=== PATIENT | male | born 1960 | race Caucasian/White ===

== ENCOUNTER 2019-02-27 09:33 | Day surgery (SDC) | payer OTHER ==
--- NOTE | 2019-02-27 10:45 | Anesthesia Day of Surgery ---
Anesthesia Day of Surgery - Day of Surgery Patient Examined: Yes Patient H&P Reviewed: Yes Patient is NPO: Yes
--- NOTE | 2019-02-27 10:45 | Anesthesia Consultation ---
Anesthesia Consult and Med Hx Date of service: 02/27/19 - Airway Anesthetic Teeth Evaluation: Dentures ROM Head & Neck: Adequate Mental/Hyoid Distance: Adequate Mallampati Class: Class II Intubation Access Assessment: Good - Pulmonary Exam CTA: Yes - Cardiac Exam Cardiac Exam: No Murmur - Pre-Operative Health Status ASA Pre-Surgery Classification: ASA2 - Pulmonary Hx Smoking: Yes (SINCE AGE 14; QUIT 2006) - Central Nervous System Hx Psychiatric Problems: No - Other Systems Hx Alcohol Use: Yes ([place]) Hx Substance Use: No Hx Cancer: No
[2019-02-27] MEDS ORDERED: LIDOCAINE 1%/EPINEPHRINE 1:100,000 VIAL (20 ML) INFILTRATI ONE (10:59)
[2019-02-27] MEDS ORDERED: BUPIVACAINE/PF (0.5%) 5 MG/1 ML 30 ML VIAL INFILTRATI ONE ×3 (10:59→12:36)
[2019-02-27] MEDS ORDERED: LACTATED RINGERS 1,000 ML IV SCH (11:00)
[2019-02-27] MEDS ORDERED: MIDAZOLAM 2 MG/2 ML INJ IV NR (11:00)
[2019-02-27] MEDS ORDERED: HEPARIN 5,000 UNIT/1 ML VIAL SUB-Q NR (11:45)
[2019-02-27] MEDS ORDERED: fentaNYL 100 MCG/2 ML INJ IV PRN (11:55)
[2019-02-27] MEDS ORDERED: ceFAZolin/STERILE WATER 2 GM/20 ML SYRINGE IV NR (12:00)
[2019-02-27] MEDS ORDERED: PROPOFOL 200 MG/20 ML VIAL IV ONE (12:04)
[2019-02-27] MEDS ORDERED: fentaNYL 100 MCG/2 ML INJ ONE (12:15)
[2019-02-27] MEDS ORDERED: ePHEDrine SULFATE 50 MG/1 ML INJ ONE (12:30)
[2019-02-27] MEDS ORDERED: LIDOCAINE MPF (2%) 20 MG/1 ML VIAL 5 ML ONE (12:36)
[2019-02-27] MEDS ORDERED: ONDANSETRON 4 MG/2 ML INJ ONE (13:58)
--- NOTE | 2019-02-27 14:14 | Post Operative Note ---
Pre-op diagnosis: 1) Left chest lipoma 2) Left upper back lipoma Post-op diagnosis: same Procedure: Excision of left chest and left back lipomas Anesthesia: other (LMA) Surgeon: SHANTI MAHAJAN Estimated blood loss: 50-100ml Pathology: list (1) left chest lipoma 2) left back lipoma) Specimen disposition: to lab Condition: stable Disposition: PACU
[2019-02-27] MEDS ORDERED: oxyCODONE /ACETAMINOPHEN 5-325MG TAB PO PRN (15:00)
[2019-02-27 15:05] VITALS: BP 121/72
--- NOTE | 2019-02-27 16:18 | Procedure Note ---
Date of procedure: 02/27/19 Pre-op diagnosis: 1) Left chest mass, 12 cm 2) Left back mass, 8 cm Post-op diagnosis: same Procedure: Excision of left chest and left upper back mass Description of procedure: Pt was placed supine on the OR table. General anesthesia by LMA was administered. Pt was repositioned left side down. Chest, shoulder and back were prepped and draped. Skin and SQ tissue over the chest mass were infiltrated with 5 ml of 0.5% Marcaine. Skin was incised. The SQ mass was c/w a lipoma. The mass was excised with Bovie and blunt dissection down to the muscular chest wall. Hemostasis was obtained with the Bovie. Skin was closed with a running subcuticular suture of 4-0 Monocryl. Skin and SQ tissue over the left back mass were infiltrated with 7 ml of 0.5% Marcaine. Skin was incised. The SQ mass was c/w a lipoma. The mass was excised with Bovie and blunt dissection down to the muscular back wall. Hemostasis was obtained with the Bovie. Skin was closed with interrupted deep dermal sutures of 3-0 Vicryl and a running subcuticular suture of 4-0 Monocryl. Skin glue was applied to both incisions. Pt tolerated the procedure well. Pt was taken to PACU in stable condition. Anesthesia: other (LMA) Surgeon: SHANTI MAHAJAN Estimated blood loss: minimal Pathology: list (1) Left chest mass 2) Left back mass) Specimen disposition: to lab Condition: stable Disposition: PACU
--- NOTE | 2019-02-27 17:51 | Post Anesthesia Evaluation ---
- Post Anesthesia Evaluation Patient Participated: Yes Airway Patent: Yes Stable Respiratory Function: Yes Nausea/Vomiting: No Temp > 96.8F: Yes Pain Manageable: Yes Adequeate Hydration: Yes Anesthesia Complications: No
== END 2019-02-27 09:34 | disposition home or self-care (01) ==
LOC: OR 09:33
PROVIDERS: ATTEND Surgery
DX: R22.2 Localized swelling, mass and lump, trunk (principal); D17.1 Benign lipomatous neoplasm of skin and subcutaneous tissue of trunk; Z87.891 Personal history of nicotine dependence; Z79.899 Other long term (current) drug therapy; Z72.89 Other problems related to lifestyle; Z98.890 Other specified postprocedural states; Z80.0 Family history of malignant neoplasm of digestive organs; Z80.8 Family history of malignant neoplasm of other organs or systems
CPT/HCPCS: 21552; 21931; 88304; J0690; J1644; J2250; J2405; J2704; J3010; J7120